=== PATIENT | female | born 1985 | race Caucasian/White ===

== ENCOUNTER 2016-08-24 09:22 | Emergency (ER) | payer MEDICAID, OTHER ==
[~2016-08-24] VITALS: Ht 170.2 cm; Wt 92.0 kg
[~2016-08-24 09:22] MED LIST: IBUP-1222 PO; OXYC-302 PO
[2016-08-24 10:44] LABS: BLOOD UREA NITROGEN 15 mg/dL (7-18)
[2016-08-24 11:09] VITALS: BP 132/78
== END 2016-08-24 11:29 | disposition home or self-care (01) ==
LOC: ED 10:39
DX: S63.511A Sprain of carpal joint of right wrist, initial encounter (principal); F50.2 Bulimia nervosa; E78.00 Pure hypercholesterolemia, unspecified; E28.2 Polycystic ovarian syndrome; X58.XXXA Exposure to other specified factors, initial encounter; Y93.89 Activity, other specified; Y92.099 Unspecified place in other non-institutional residence as the place of occurrence of the external cause; Y99.8 Other external cause status
CPT/HCPCS: 29125; 36415; 80048; 82040; 99285

== ENCOUNTER 2016-09-21 10:19 | Emergency (ER) | payer MEDICAID ==
[~2016-09-21] VITALS: Ht 170.2 cm; Wt 93.0 kg
[2016-09-21] MEDS ORDERED: SODIUM CHLORIDE FLUSH 10ML SYR IVF ONE (10:30)
[2016-09-21] MEDS ORDERED: methylPREDNISolone SOD SUCC 125 MG/2 ML IVPush ONE (10:30)
[2016-09-21] MEDS ORDERED: DIPHENHYDRAMINE 50 MG/ML, 1ML IVPush ONE (10:30)
[2016-09-21] MEDS ORDERED: FAMOTIDINE 20 MG/2 ML IVPush ONE (10:30)
[2016-09-21] MEDS ORDERED: PREN-3 PO (10:48)
[2016-09-21] MEDS ORDERED: BIOT1CAP3 PO (10:48)
[2016-09-21] MEDS ORDERED: methylPREDNISolone SOD SUCC 125 MG/2 ML ONE (10:57)
[2016-09-21] MEDS ORDERED: DIPHENHYDRAMINE 50 MG/ML, 1ML ONE (10:57)
[2016-09-21] MEDS ORDERED: FAMOTIDINE 20 MG/2 ML ONE (10:58)
[2016-09-21 13:01] VITALS: BP 122/73
[2016-09-22] MEDS ORDERED: PRED20TA PO (06:28)
[2016-09-22] MEDS ORDERED: DIPH25CA61 PO (06:30)
== END 2016-09-21 13:03 | disposition home or self-care (01) ==
LOC: ED 12:16
DX: L50.0 Allergic urticaria (principal); E78.00 Pure hypercholesterolemia, unspecified; E28.2 Polycystic ovarian syndrome
CPT/HCPCS: 96374; 96375; 99284; J1200; J2930; S0028

== ENCOUNTER 2016-09-22 05:42 | Emergency (ER) | payer MEDICAID ==
[~2016-09-22] VITALS: Ht 170.2 cm; Wt 92.8 kg
[~2016-09-22 05:42] MED LIST changes: +BIOT1CAP3 PO; +PREN-3 PO
[2016-09-22] MEDS ORDERED: methylPREDNISolone SOD SUCC 125 MG/2 ML ONE (06:18)
[2016-09-22] MEDS ORDERED: DIPHENHYDRAMINE 50 MG/ML, 1ML ONE (06:18)
[2016-09-22] MEDS ORDERED: PRED20TA PO (06:28)
[2016-09-22] MEDS ORDERED: DIPH25CA61 PO (06:30)
[2016-09-22] MEDS ORDERED: DIPHENHYDRAMINE 50 MG/ML, 1ML IVPush ONE (06:30)
[2016-09-22] MEDS ORDERED: SODIUM CHLORIDE 0.9% 1,000ML IVBOLUS ONE (06:30)
[2016-09-22] MEDS ORDERED: SODIUM CHLORIDE FLUSH 10ML SYR IVF ONE (06:30)
[2016-09-22] MEDS ORDERED: methylPREDNISolone SOD SUCC 125 MG/2 ML IVPush ONE (06:30)
[2016-09-22 07:40] VITALS: BP 135/78
== END 2016-09-22 08:39 | disposition home or self-care (01) ==
LOC: ED 06:14
DX: L50.0 Allergic urticaria (principal); E78.00 Pure hypercholesterolemia, unspecified
CPT/HCPCS: 96361; 96374; 96375; 99285; J1200; J2930; J7030

== ENCOUNTER 2016-09-22 21:33 | Emergency (ER) | payer MEDICAID ==
[~2016-09-22] VITALS: Ht 170.2 cm; Wt 91.1 kg
[~2016-09-22 21:33] MED LIST changes: +DIPH25CA61 PO; +PRED20TA PO
[2016-09-22] MEDS ORDERED: EPINEPHRINE 1 MG/ML, 1ML ONE (22:25)
[2016-09-22] MEDS ORDERED: DIPHENHYDRAMINE 50 MG/ML, 1ML ONE (22:25)
[2016-09-22] MEDS ORDERED: methylPREDNISolone SOD SUCC 125 MG/2 ML ONE (22:25)
[2016-09-22] MEDS ORDERED: FAMOTIDINE 20 MG/2 ML ONE (22:25)
[2016-09-22 22:29] LABS: HEMATOCRIT 40.8 % (34.6-47.8); HEMOGLOBIN 13.4 g/dL (11.7-16.4); WHITE BLOOD COUNT 19.5 x10^3/uL (3.4-10)
[2016-09-22] MEDS ORDERED: DIPHENHYDRAMINE 50 MG/ML, 1ML IVPush ONE (22:30)
[2016-09-22] MEDS ORDERED: SODIUM CHLORIDE 0.9% 1,000ML IVBOLUS ONE (22:30)
[2016-09-22] MEDS ORDERED: EPINEPHRINE 1 MG/ML, 1ML IM ONE (22:30)
[2016-09-22] MEDS ORDERED: FAMOTIDINE 20 MG/2 ML IVPush ONE (22:30)
[2016-09-22] MEDS ORDERED: SODIUM CHLORIDE FLUSH 10ML SYR IVF ONE (22:30)
[2016-09-22] MEDS ORDERED: methylPREDNISolone SOD SUCC 125 MG/2 ML IVPush ONE (22:30)
[2016-09-22 22:41] LABS: BLOOD UREA NITROGEN 14 mg/dL (7-18)
[2016-09-23 00:50] VITALS: BP 122/82
== END 2016-09-23 00:52 | disposition home or self-care (01) ==
LOC: ED 22:03
DX: L50.9 Urticaria, unspecified (principal); E78.00 Pure hypercholesterolemia, unspecified
CPT/HCPCS: 36415; 80048; 85025; 96361; 96372; 96374; 96375; 99284; J0171; J1200; J2930; J7030; S0028

== ENCOUNTER 2016-11-01 18:08 | Emergency (ER) | payer MEDICAID ==
[~2016-11-01] VITALS: Ht 170.2 cm; Wt 96.3 kg
[2016-11-01 18:15] VITALS: BP 148/94
[2016-11-01] MEDS ORDERED: DEXAMETHASONE 4 MG TABLET PO ONE (19:00)
[2016-11-01] MEDS ORDERED: DEXAMETHASONE 4 MG TABLET ONE (19:34)
[2016-11-01] MEDS ORDERED: BENZONATATE 100 MG CAPSULE PO SCH (21:00)
== END 2016-11-01 20:41 | disposition home or self-care (01) ==
LOC: ED 20:15
DX: J20.8 Acute bronchitis due to other specified organisms (principal); E78.00 Pure hypercholesterolemia, unspecified
CPT/HCPCS: 71020; 93005; 99284

== ENCOUNTER 2019-03-13 00:05 | Observation (INO) | payer MEDICAID ==
[~2019-03-13] VITALS: Ht 170.2 cm; Wt 99.9 kg
[2019-03-13 00:31] LABS: BASOPHILS # (AUTO) 0.04 x10^3/uL (0-0.1); BASOPHILS % (AUTO) 0 % (0-1); EOSINOPHILS # (AUTO) 0.24 x10^3/uL (0-0.4); EOSINOPHILS % (AUTO) 2 % (1-7); LYMPHOCYTES # (AUTO) 3.34 x10^3/uL (1-3.4); LYMPHOCYTES % (AUTO) 23 % (22-44); MD NO; MEAN CORPUSCULAR HEMOGLOBIN 26.3 pg (27.0-34.8); MEAN CORPUSCULAR VOLUME 79.6 fL (80-100); MEAN PLATELET VOLUME 9.1 fL (7.4-10.4); MONOCYTES # (AUTO) 0.82 x10^3/uL (0.2-0.8); MONOCYTES % (AUTO) 6 % (2-9); NEUTROPHILS # (AUTO) 10.06 x10^3/uL (1.8-6.8); NEUTROPHILS % (AUTO) 69 % (42-75); PLATELET COUNT 317 x10^3/uL (130-400); RED CELL DISTRIBUTION WIDTH 15.3 % (9.6-15.2)
[2019-03-13 00:39] LABS: CULTURE INDICATED? YES; MICROSCOPIC INDICATED
[2019-03-13 00:45] LABS: ALANINE AMINOTRANSFERASE 24 U/L (12-78); ALBUMIN 3.6 g/dL (3.4-5.0); ANION GAP 7 mmol/L (5-15); CALCIUM 9.1 mg/dL (8.5-10.1); CHLORIDE 104 mmol/L (98-107); CREATININE 0.78 mg/dL (0.55-1.02)
[2019-03-13 00:47] LABS: ALKALINE PHOSPHATASE 100 U/L (45-117); BILIRUBIN,TOTAL 0.4 mg/dL (0.2-1.0); TOTAL PROTEIN 8.3 g/dL (6.4-8.2)
--- NOTE | 2019-03-13 00:53 | NUR ---
THIS IS A 33Y F THAT COMES IN W/ C/O UTI SYMPTOMS, RIGHT LOWER QUAD PAIN, R FLANK PAIN AND PAINFUL URINATION WITH INC FREAQUENCY. PT STS SHE RECENTLY HAD A STOMACH INFECTION WITH DIARRHEA (NOW RESOLVED.) PT RESTING ON [place]. CALL LIGHT IN REACH
[2019-03-13] MEDS ORDERED: PHENAZOPYRIDINE 200 MG TABLET PO ONE (01:00)
[2019-03-13] MEDS ORDERED: KETOROLAC 30 MG/1 ML IVPush ONE (01:00)
[2019-03-13] MEDS ORDERED: SODIUM CHLORIDE 0.9% 1,000ML IVBOLUS ONE ×2 (01:00→01:30)
[2019-03-13] MEDS ORDERED: PHENAZOPYRIDINE 200 MG TABLET ONE (01:05)
[2019-03-13] MEDS ORDERED: KETOROLAC 30 MG/1 ML ONE (01:05)
[2019-03-13] MEDS ORDERED: CEFTRIAXONE PMX 1GM/50ML 50 ML IV ONE (01:30)
[2019-03-13] MEDS ORDERED: CEFTRIAXONE PMX 1GM/50ML 50 ML ONE (01:38)
[2019-03-13] MEDS ORDERED: SODIUM CHLORIDE 0.9% 1,000 ML IV SCH (02:14)
[2019-03-13] MEDS ORDERED: ACETAMINOPHEN 325 MG TABLET PO PRN (02:30)
[2019-03-13] MEDS ORDERED: ONDANSETRON 2MG/ML, 2ML IVPush PRN (02:30)
[2019-03-13] MEDS ORDERED: HYDROcodone/APAP 5/325 TABLET PO PRN (02:30)
[2019-03-13] MEDS ORDERED: METF500T17 PO (06:42)
[2019-03-13] MEDS ORDERED: KETOROLAC 30 MG/1 ML IVPush PRN (07:30)
[2019-03-13 07:37] VITALS: BP 107/73
[2019-03-13] MEDS ORDERED: OXYBUTYNIN CHLORIDE 5 MG TABLET PO PRN (10:30)
[2019-03-13] MEDS: GUAIFENESIN ER 600 MG TABLET PO SCH ×2 (10:38→21:06)
[2019-03-13 12:44] LABS: CLOSTRIDIUM DIFFICILE ANTIGEN NEGATIVE; CLOSTRIDIUM DIFFICILE TOXIN NEGATIVE (Negative)
[2019-03-13 13:15] VITALS: BP 133/84
[2019-03-13] MEDS ORDERED: IBUPROFEN 600 MG TABLET PO PRN (14:00)
[2019-03-13 18:55] VITALS: BP 113/79
[2019-03-14 02:00] VITALS: BP 125/84
[2019-03-14] MEDS ORDERED: CEFTRIAXONE PMX 1GM/50ML 50 ML IV SCH (02:00)
[2019-03-14] MEDS ORDERED: SODIUM CHLORIDE 0.9% 1,000 ML IV SCH (02:14)
[2019-03-14 05:54] LABS: BASOPHILS # (AUTO) 0.03 x10^3/uL (0-0.1); BASOPHILS % (AUTO) 0 % (0-1); EOSINOPHILS # (AUTO) 0.22 x10^3/uL (0-0.4); EOSINOPHILS % (AUTO) 3 % (1-7); LYMPHOCYTES # (AUTO) 2.87 x10^3/uL (1-3.4); LYMPHOCYTES % (AUTO) 37 % (22-44); MD NO; MEAN CORPUSCULAR HEMOGLOBIN 26.3 pg (27.0-34.8); MEAN CORPUSCULAR VOLUME 79.7 fL (80-100); MEAN PLATELET VOLUME 8.9 fL (7.4-10.4); MONOCYTES # (AUTO) 0.42 x10^3/uL (0.2-0.8); MONOCYTES % (AUTO) 5 % (2-9); NEUTROPHILS # (AUTO) 4.24 x10^3/uL (1.8-6.8); NEUTROPHILS % (AUTO) 55 % (42-75); PLATELET COUNT 234 x10^3/uL (130-400); RED BLOOD COUNT 4.47 x10^6/uL (3.82-5.3); RED CELL DISTRIBUTION WIDTH 15.6 % (9.6-15.2)
[2019-03-14 06:03] LABS: CHLORIDE 109 mmol/L (98-107)
[2019-03-14 06:11] LABS: ANION GAP 8 mmol/L (5-15); CALCIUM 8.6 mg/dL (8.5-10.1); CREATININE 0.63 mg/dL (0.55-1.02)
[2019-03-14 06:39] VITALS: BP 124/82
[2019-03-14] MEDS: GUAIFENESIN ER 600 MG TABLET PO SCH (07:58)
[2019-03-14] MEDS ORDERED: GUAI600T31 PO (10:42)
[2019-03-14] MEDS ORDERED: CEFD300C37 PO (10:42)
[2019-03-14 13:13] VITALS: BP 144/92
[2019-03-14] MEDS ORDERED: FLU VACC QS2019-20 36MOS UP/PF 0.5 ML IM-VACC ONE (13:30)
== END 2019-03-14 13:45 | disposition home or self-care (01) ==
LOC: ED 01:17 → UNDOADMIN 01:31 → EDIP 01:31 → INTOOBSV 02:16 → 3N 02:16 → EDIP 02:57
PROVIDERS: ADMIT Internal Medicine; ATTEND Internal Medicine
DX: N10 Acute pyelonephritis (principal); E28.2 Polycystic ovarian syndrome; E78.00 Pure hypercholesterolemia, unspecified; Z79.899 Other long term (current) drug therapy; Z91.19 Patient's noncompliance with other medical treatment and regimen; Z23 Encounter for immunization
CPT/HCPCS: 36415; 80048; 80053; 81001; 81025; 83605; 84145; 84703; 85025; 87040; 87077; 87086; 87186; 87324; 89055; 90471; 90686; 96361; 96365; 96366; 96375; G0378; J0696; J1885; J7030